=== PATIENT | female | born 1960 | race Caucasian/White ===

== ENCOUNTER → 2022-03-04 | Outpatient (CLI) | payer SELFPAY ==
--- NOTE | 2022-03-04 06:58 | MRI_ITS ---
STUDY: MRI RIGHT SHOULDER REASON FOR EXAM: Right shoulder pain for 4-5 months. TECHNIQUE: Standardized fat and water weighted pulse sequences were obtained in all 3 orthogonal planes. COMPARISON: None. FINDINGS: There is a full-thickness tear of the supraspinatus tendon retracted approximately 3.3 cm and extending into the anterior infraspinatus tendon (T2 coronal images 7-13). There is a full-thickness tear of the distal subscapularis tendon (T2 axial images 10-12). Normal teres minor tendon. There is atrophy with partial fat replacement of the supraspinatus, infraspinatus and subscapularis muscles (T2 sagittal image 24). Normal teres minor muscle. Normal glenohumeral articulation. There is superior migration of the humeral head secondary to the retracted rotator cuff tear. There are small cysts in the greater tuberosity. There is a tear with nonvisualization of the intracapsular long biceps tendon. Normal labrum. Normal capsulo- ligamentous complex. There is acromioclavicular arthrosis with mild hypertrophic changes (T2 sagittal image 19). There is a Type II morphology (curved), with a neutral orientation. There is subacromial-subdeltoid bursal fluid. There is thickening of the coracoacromial ligament (T2 sagittal image 17). There is a chronic defect of the proximal lateral deltoid muscle communicating with the subacromial-subdeltoid bursa measuring 2.4 cm in AP dimension (T2 axial images 12-16). Normal trapezius muscle. MRI/Upper Ext Joint Only(Routine) IMPRESSION: Full-thickness tear of the supraspinatus tendon extending into the anterior infraspinatus tendon. Full-thickness tear of the subscapularis tendon. Atrophy of the supraspinatus, infraspinatus and subscapularis muscles. Tear of the long biceps tendon. Acromioclavicular arthrosis. Thickening of the coracoacromial ligament. Chronic defect of the proximal lateral deltoid muscle. Subacromial-subdeltoid bursal fluid. Electronically Signed: Boni Madrigal MD at 8:37 EDT ,
== END | disposition home or self-care (01) ==
LOC: MRI 06:47
PROVIDERS: PCP Family Medicine; Referring Provider Family Medicine; Visit Provider Family Medicine
DX: M75.101 Unspecified rotator cuff tear or rupture of right shoulder, not specified as traumatic (principal); M25.511 Pain in right shoulder
CPT/HCPCS: 73221